=== PATIENT | female | born 1995 | race Caucasian/White ===

== ENCOUNTER 2023-07-28 23:16 | Emergency (ER) | payer OTHER ==
[~2023-07-28] VITALS: Ht 165.1 cm; Wt 118.2 kg
[2023-07-28 23:46] LABS: MEAN CORPUSCULAR HEMOGLOBIN 30.5 PG (27.0-31.0); MEAN PLATELET VOLUME 8.9 FL (7.4-10.4)
[2023-07-28 23:48] LABS: BASOPHILS # (AUTO) 0.1 X10'3 (0-0.2); BASOPHILS % (AUTO) 0.7 % (0-1); EOSINOPHILS # (AUTO) 0.1 X10'3 (0-0.9); EOSINOPHILS % (AUTO) 0.6 % (0-6); HEMATOCRIT 41.5 % (35.0-45.0); HEMOGLOBIN 14.3 g/dl (12.0-16.0); LYMPHOCYTES # (AUTO) 2.3 X10'3 (1.1-4.8); LYMPHOCYTES % (AUTO) 22.7 % (21-51); MEAN CORPUSCULAR HGB CONC 34.4 g/dL (33.0-36.5); MEAN CORPUSCULAR VOLUME 88.7 FL (78-98); MONOCYTES # (AUTO) 0.8 X10'3 (0-0.9); MONOCYTES % (AUTO) 8.2 % (2-12); NEUTROPHILS # (AUTO) 6.8 X10'3 (1.8-7.7); NEUTROPHILS % (AUTO) 67.8 % (42-75); PLATELET COUNT 322 X10'3 (140-440); RED BLOOD COUNT 4.68 X10'6 (4.20-5.60); RED CELL DISTRIBUTION WIDTH 12.4 % (11.5-14.5)
[2023-07-29] MEDS: mag hydrox/Alum hydrox/simeth 30ml oral suspension PO ONE (00:14)
[2023-07-29] MEDS: pantoprazole 40 MG vial IV ONE (00:15)
[2023-07-29] MEDS: LIDOcaine 2% Viscous 15ml cup MM ONE (00:16)
[2023-07-29] MEDS: aspirin 325mg tablet PO ONE (00:17)
[2023-07-29] MEDS: ondansetron/PF 4mg/2ml inj IV ONE (00:18)
[2023-07-29 00:19] LABS: ALANINE AMINOTRANSFERASE 21 U/L (12-78); ALKALINE PHOSPHATASE 98 IU/L (46-116); ANION GAP 9 (8-16); ASPARTATE AMINO TRANSFERASE 23 U/L (10-37); BILIRUBIN,TOTAL 0.3 MG/DL (0.1-1.0); CHLORIDE 107 MMOL/L (99-107); SODIUM 138 MMOL/L (135-145); TOTAL CARBON DIOXIDE 21.8 MMOL/L (24-32); TOTAL PROTEIN 7.7 G/DL (6.4-8.2)
[2023-07-29] MEDS: famotidine/PF 10 mg/ml inj IV ONE (00:23)
[2023-07-29] MEDS: famotidine 10mg/ml inj IV ONE (00:23)
[2023-07-29 00:44] LABS: ALBUMIN 3.7 G/DL (3.4-5.0); ALBUMIN/GLOBULIN RATIO 0.9 (1.1-1.5); BLOOD UREA NITROGEN 15 MG/DL (7-18); BUN/CREATININE RATIO 14.9 (10.0-20.0); CALCIUM 8.3 MG/DL (8.5-10.1); CREATININE 1.01 MG/DL (0.40-0.90); GLUCOSE 90 MG/DL (70-104); PRO BRAIN NATRIURETIC PEPTIDE 63 PG/ML (0-125); eCRCL 73 ML/MIN; eGFR 64 ML/MIN
[2023-07-29 01:05] LABS: D-DIMER 0.83 MG/L FEU (0-0.50)
[2023-07-29] MEDS ORDERED: iohexol 350MG/ML 100ml bottle IV ONE (02:56)
[2023-07-29 04:24] VITALS: BP 116/81; PULSE 88; RESP 16; TEMP 98.5; O2SAT 99
== END 2023-07-29 04:26 | disposition home or self-care (01) ==
LOC: ER 23:17
DX: R07.9 Chest pain, unspecified (principal)
CPT/HCPCS: 36415; 71045; 71275; 80053; 83880; 84484; 85025; 85379; 93005; 96365; 96366; 96375; 99285; C9113; J2405; J3490; Q9967; 99284